=== PATIENT | male | born 1965 | race Caucasian/White ===

== ENCOUNTER 2017-02-13 12:10 | Observation (INO) | payer BC ==
[2017-02-13] MEDS ORDERED: NS 0.9% 1000 ML* 1,000 ML IV ONE (12:48)
[2017-02-13 12:53] LABS: Hematocrit 44 % (42-52); Hemoglobin 14.9 g/dl (14.0-18.0); Mean Corpuscular HGB Conc 34 g/dl (31-36); Mean Corpuscular Hemoglobin 28 pg (27-31); Mean Corpuscular Volume 83 fL (80-94); Mean Platelet Volume 8 um3 (7.4-10.4); Red Blood Count 5.26 10^6/ul (4.0-5.4); Red Cell Distribution Width 14 % (10.5-15); White Blood Count 6.6 10^3/ul (3.5-10.8)
[2017-02-13 13:15] LABS: Albumin 4.1 g/dL (3.2-5.2); Calcium 9.4 mg/dL (8.6-10.3); EGFR African American 116.4 (>60); EGFR Non-African American 90.5 (>60); Globulin 2.5 g/dL (2-4); Magnesium 1.9 mg/dL (1.9-2.7); Potassium 4.2 mmol/L (3.5-5.0); Total Bilirubin 0.6 mg/dL (0.2-1.0); Total Protein 6.6 g/dL (6.4-8.9)
[2017-02-13] MEDS ORDERED: Ondansetron INJ* 2 MG/ML VIAL IV ONE (13:15)
--- NOTE | 2017-02-13 13:16 | RAD ---
HISTORY: Dizziness COMPARISONS: May 19, 2003 VIEWS: 1: frontal portable view of the chest at 12:45 PM FINDINGS: LINES AND TUBES: None. CARDIOMEDIASTINAL SILHOUETTE: The cardiomediastinal silhouette is normal for portable technique. PLEURA: The costophrenic angles are sharp. No pleural abnormalities are noted. LUNG PARENCHYMA: The lungs are clear. ABDOMEN: The upper abdomen is clear. There is no subphrenic gas. BONES AND SOFT TISSUES: No bone or soft tissue abnormalities are noted. IMPRESSION: NO ACTIVE CARDIOPULMONARY DISEASE.
[2017-02-13 13:42] LABS: TSH (Thyroid Stimulating Horm) 0.61 mcIU/mL (0.34-5.60)
--- NOTE | 2017-02-13 13:53 | ED ---
Joshua Hyman Thomas, scribed for Magda Mustafa MD on 02/13/17 at 1303 . Dizziness - HPI Summary HPI Summary: The pt is a 51 y/o M presenting to the ED c/o dizziness characterized as near- syncope that began today at 12:00. He was driving when he started to notice fuzzy eyesight and then pressure in his head. He felt faint and pulled over to the side of the road and took deep breaths. He then drove to the ED. He also complains of chronic arm pain that began a month ago. The pain is normally intermittent, but it has been constant today since 06:30. He describes this pain as a sleepy arm. Pt denies INIGUEZ, neck pain, CP, double vision, aphasia, and dysphagia. 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 He drinks occasionally and does not smoke. PMHx significant for borderline HTN and sleep apnea. NIH 0 - History Of Current Complaint Chief Complaint: EDDizziness Stated Complaint: NUMBNESS LEFT ARM,DIZZY SPELL Time Seen by Provider: 02/13/17 12:28 Hx Obtained From: Patient Onset/Duration: Still Present Timing: Minutes - onset today at 12:00 Character: Lightheaded, Weak Aggravating Factor(s): Nothing Alleviating Factor(s): Nothing Associated Signs And Symptoms: Positive: Other: - Arm pain; NEGATIVE: INIGUEZ, neck pain, double vision, aphasia, dysphagia. Negative: Chest Pain - Allergies/Home Medications Allergies/Adverse Reactions: Allergies Allergy/AdvReac Type Severity Reaction Status Date / Time Penicillins [PCN] Allergy Severe Difficulty Verified 03/20/15 10:29 Breathing PMH/Surg Hx/FS Hx/Imm Hx Previously Healthy: No Endocrine/Hematology History: Denies: Hx Diabetes, Hx Systemic Lupus Erythematosus Cardiovascular History: Reports: Hx Hypertension - borderline Denies: Hx Congestive Heart Failure, Hx Pacemaker/ICD Respiratory History: Reports: Hx Sleep Apnea GI History: Denies: Other GI Disorders - ACID REFLUX History: Denies: Hx Dialysis, Hx Renal Disease Musculoskeletal History: Denies: Hx Rheumatoid Arthritis Sensory History: Denies: Hx Hearing Aid Psychiatric History: Denies: Hx Panic Disorder - Cancer History Hx Chemotherapy: No - Surgical History Surgery Procedure, Year, and Place: RT WRIST- [place] CYST/LT WRIST - [place] Infectious Disease History: No Infectious Disease History: Denies: Traveled Outside the [place] in Last 30 Days - Family History Known Family History: Positive: Cardiac Disease, Hypertension - Social History Occupation: Employed Full-time - in law enforcement Lives: Alone Alcohol Use: Occasionally Alcohol Amount: Every other day Substance Use Type: Reports: None Smoking Status (MU): Never Smoked Tobacco Have You Smoked in the Last Year: No Review of Systems Negative: Fever Negative: Diplopia Negative: Other - NEG: dysphasia Negative: Chest Pain Neurological: Other - Dizziness characterized as near-syncope; NEG: aphasia Negative: Headache All Other Systems Reviewed And Are Negative: Yes Physical Exam Triage Information Reviewed: Yes Vital Signs On Initial Exam: Initial Vitals Temp Pulse Resp BP Pulse Ox 98.2 F 68 20 158/93 99 02/13/17 12:15 02/13/17 12:15 02/13/17 12:15 02/13/17 12:15 02/13/17 12:15 Vital Signs Reviewed: Yes Appearance: Positive: Well-Appearing, No Pain Distress Skin: Positive: Warm, Skin Color Reflects Adequate Perfusion, Dry Eyes: Positive: EOMI, CK Neck: Positive: Supple, Nontender Respiratory/Lung Sounds: Positive: Clear to Auscultation, Breath Sounds Present. Negative: Rales, Rhonchi, Wheezes Cardiovascular: Positive: RRR, Other - No gallop. Negative: Murmur, Rub Abdomen Description: Positive: Nontender, Soft. Negative: Distended, Guarding, Other: - No rebound Bowel Sounds: Positive: Present Musculoskeletal: Positive: Strength/ROM Intact. Negative: Edema Left, Edema Right Neurological: Positive: Sensory/Motor Intact, Alert, Oriented to Person Place, Time, CN Intact II-III Psychiatric: Positive: Affect/Mood Appropriate - Allison Coma Scale Coma Scale Total: 15 Diagnostics - Vital Signs Vital Signs Temp Pulse Resp BP Pulse Ox 02/13/17 12:15 98.2 F 68 20 158/93 99 - Laboratory Lab Results: Lab Results 02/13/17 Range/Units 12:45 WBC 6.6 (3.5-10.8) 10^3/ul RBC 5.26 (4.0-5.4) 10^6/ul Hgb 14.9 (14.0-18.0) g/dl Hct 44 (42-52) % MCV 83 (80-94) fL MCH 28 (27-31) pg MCHC 34 (31-36) g/dl RDW 14 (10.5-15) % Plt Count 266 (150-450) 10^3/ul MPV 8 (7.4-10.4) um3 Neut % (Auto) 61.1 (38-83) % Lymph % (Auto) 24.2 L (25-47) % [place] % (Auto) 8.4 (1-9) % Eos % (Auto) 5.3 (0-6) % Baso % (Auto) 1.0 (0-2) % Absolute Neuts (auto) 4.0 (1.5-7.7) 10^3/ul Absolute Lymphs (auto) 1.6 (1.0-4.8) 10^3/ul Absolute Monos (auto) 0.6 (0-0.8) 10^3/ul Absolute Eos (auto) 0.4 (0-0.6) 10^3/ul Absolute Basos (auto) 0.1 (0-0.2) 10^3/ul Absolute Nucleated RBC 0 10^3/ul Nucleated RBC % 0 Result Diagrams: 02/13/17 12:45 02/13/17 12:45 Lab Statement: Any lab studies that have been ordered have been reviewed, and results considered in the medical decision making process. - Radiology CXR Xray Interpretation: No Acute Changes - No active cardiopulmonary disease. ED physician has read this report and agrees. Radiology Interpretation Completed By: Radiologist - EKG 12:40 Cardiac Rate: NL - 71 BPM EKG Interpretation: Normal EKG. No PVCs. National Institutes Of Health - NIH Scale Level of Consciousness: Alert/Keenly Responsive Ask Patient the Month and His/Her Age: Both Correct Ask Pt to Open/Close Eyes and Tubing Oiler/Release Non-Paretic Hand: Both Correctly Best Gaze (Only Horizontal Eye Movement): Normal Visual Field Testing: No Visual Loss Facial Paresis-Pt to Smile & Close Eyes or Grimace Symmetry: Normal/Symmetrical Motor Function - Right Arm: No Drift-Holds 10 Seconds Motor Function - Left Arm: No Drift-Holds 10 Seconds Motor Function - Right Leg: No Drift-Holds 10 Seconds Motor Function - Left Leg: No Drift-Holds 10 Seconds Limb Ataxia-Must be out of Proportion to Weakness Present: Absent Sensory (Use Pinprick to Test Arms/Legs/Trunk/Face): Normal Best Language (Describe Picture, Name Items): No Aphasia Dysarthria (Read Several Words): Normal Extinction and Inattention: No Abnormality Total Score: 0 Dizzy Course/Dx - Course Course Of Treatment: 51 yo male with episodic left arm pain and near syncope this am pt presented to hopsitalist for obv - Diagnoses Provider Diagnoses: Near syncope - Provider Notifications Discussed Care Of Patient With: Kristel Jenkins Time Discussed With Above Provider: 13:10 Instructed by Provider To: Other - We discussed patient care Discharge - Discharge Plan Condition: Stable Disposition: ADMITTED TO [facility] documentation as recorded by the Joshua jeffers Thomas accurately reflects the service I personally performed and the decisions made by me, Magda Mustafa MD.
[2017-02-13] MEDS ORDERED: Acetaminophen TAB* 325 MG PO PRN (13:57)
[2017-02-13] MEDS ORDERED: Ondansetron INJ* 2 MG/ML VIAL IV PRN (13:57)
[2017-02-13] MEDS ORDERED: Perflutren Lipid Microsphere* 3 ML VIAL ONE (14:51)
--- NOTE | 2017-02-13 17:39 | HP ---
Amended report to enter co-signing doctor. HISTORY AND PHYSICAL: DATE OF ADMISSION: 02/13/17 PRIMARY CARE PHYSICIAN: Dr. Nielson. ATTENDING PHYSICIAN: Dr. Anibal Bourne* (dictation is provided by Shiv Greene NP). CHIEF COMPLAINT: Near syncope. HISTORY OF PRESENT ILLNESS: Today, Mr. Quinn was in his normal state of health , was driving, running errands; this morning after having a normal breakfast, felt his left arm was aching with tingling in his fingers. He said this is not unusual, it has been occurring for the past few months and then after about half an hour, he noticed that his vision was getting fuzzy and he felt dizzy. He did not lose consciousness. He felt hot and flushed, was negative for diaphoresis. He continued to drive and thought he would drive to his family physician, changed his mind at that point and drove to the emergency room to be evaluated. Again, he was near syncopal with no loss of consciousness. On arrival to the emergency room, his vital signs were stable. He was in a sinus rhythm. His O2 sats were 98, blood pressure was 142/80, he said that he has been borderline hypertension, respiratory rate 18. His EKG showed a normal sinus rhythm. While in the emergency room, he also had a chest x-ray. The chest x-ray showed no active cardiopulmonary disease. He has been free of symptoms since his arrival to the emergency room. Denies chest pain, shortness of breath, palpitations. He has been in his usual state of health up until today. He is on room air. PAST MEDICAL HISTORY: He does have a history of GERD, which he will take Prevacid p.r.n. if he feels he needs it. He also has a history of BPH that he sees Dr. Meng for, sleep apnea, wears a CPAP, and obesity. PAST SURGICAL HISTORY: He has had a right wrist ganglion removed and a left wrist arthroplasty, which was benign. MEDICATIONS: As outpatient he takes: 1. Flomax 0.4 mg by mouth once a day. 2. Prevacid p.r.n. ALLERGIES: He is allergic to PENICILLIN. FAMILY HISTORY: Significant for a father who is alive in his 70s, with a history of heart attack and hypertension. Mother is alive and well, with a history of hypertension. He has a brother who is alive and well and healthy. He has 2 grown children who are healthy. SOCIAL HISTORY: No smoking. He does drink 6 to 9 beers in a week. No drugs. He works as a law enforcement agent. He is and, as previously stated, has 2 children. REVIEW OF SYSTEMS: Currently he has no fever. He has not had any weight change. His vision is back to normal. No sore throat. No cough. No thyroid enlargement. Denies having chest pain during the event and previously. No history of shortness of breath. No orthopnea. No nausea or vomiting. No dysuria or any frequency. Review of 14 systems completed, all others are negative. No abdomen pain. No diarrhea or constipation. PHYSICAL EXAMINATION GENERAL: He is sitting on the stretcher, in no acute distress. LUNGS: Clear bilaterally on room air. HEART: S1, S2, in a normal sinus rhythm, regular. ABDOMEN: Large, round, soft, nontender. Positive bowel sounds. EXTREMITIES: No cyanosis. No edema. NEUROLOGIC: He is alert, oriented x3, cooperative, pleasant, interacts easily, moves all extremities well. SKIN: Intact. DIAGNOSTIC STUDIES: His lab readings, white count 6.6, H and H of 14.9 and 44. Chemistry is normal. Sodium 137, potassium 4.2, chloride 103, carbon dioxide 29, BUN 16, creatinine 0.89. His glucose was at 106, which I discussed with him. No history of diabetes or family diabetes. Lactic 0.9. TSH 0.61. Chest x-ray, which was completed in the ER, is read as no findings. ASSESSMENT: Mr. Quinn is a 51-year-old gentleman who was in his normal state of health, running errands today, driving by himself, presented to the ER after having a near syncopal episode. Since arrival, he has been symptom free. We be admitted as an OBV. We will get echo and serial troponins to rule out a cardiac event. PLAN: 1. Near syncope. We will observe on the telemetry unit. He will be on cardiac monitoring. We will obtain echo, serial troponins, and monitor. 2. BPH. We will continue his Flomax. 3. GERD. Continue Prevacid as needed. 4. DVT prophylaxis. He will have SCDs if he is in bed, and up ambulating ad- cliff. 5. Disposition: To the telemetry unit. 6. He is full code. His is his surrogate decision maker. Time Spent: 60 minutes spent on admission of patient with approximately 1/2 the time at the bedside, physical exam and discussing plan of care. Attending physician in agreement with plan of care. SHIV GREENE, DOUBLE BACKER [id number]/CPS #: [id number] PIER[place]
[2017-02-13 21:55] VITALS: BP 179/104
--- NOTE | 2017-02-14 07:30 | DCNOTE ---
Subjective Date of Service: 02/13/17 Interval History: Patient was in his normal state of health when he developed left arm numbness and bilateral arm tingling. States this did not dissipate and the developed blurred vision and warmth to his face. He was going to drive to his primary care physician and then decided to drive to the emergency room for evaluation. While in the Emergency Room his symptoms resolved. Was admitted as an OBV. ECHO and serial troponins were obtained. Patient carries a history of BPH and obesity. Family History: Unchanged from Admission Social History: Unchanged from Admission Past Medical History: Unchanged from Admission Objective Active Medications: Flomax 0.4mg daily Vital Signs 02/13/17 02/13/17 02/13/17 14:00 14:30 15:00 Temperature Pulse Rate 64 64 64 Respiratory 17 20 20 Rate Blood Pressure 136/85 145/83 139/71 (mmHg) O2 Sat by Pulse 95 96 97 Oximetry 02/13/17 02/13/17 15:15 20:43 Temperature 97.9 F 98.5 F Pulse Rate 67 72 Respiratory 18 18 Rate Blood Pressure 145/57 179/104 (mmHg) O2 Sat by Pulse 99 97 Oximetry Oxygen Devices in Use Now: None Appearance: Comfortable appearing obese male resting in bed Eyes: No Scleral Icterus, PERRLA Ears/Nose/Mouth/Throat: NL Teeth, Lips, Gums, Clear Oropharnyx, Mucous Membranes Moist Neck: NL Appearance and Movements; NL JVP, Trachea Midline, No Thyroid Enlargement, Masses Respiratory: Symmetrical Chest Expansion and Respiratory Effort, Clear to Auscultation Cardiovascular: NL Sounds; No Murmurs; No JVD, No Edema Abdominal: NL Sounds; No Tenderness; No Distention, No Hepatosplenomegaly Lymphatic: No Cervical Adenopathy Extremities: No Edema, No Clubbing, Cyanosis Skin: No Rash or Ulcers Neurological: Alert and Oriented x 3, NL Sensation, NL Muscle Strength and Tone Result Diagrams: 02/13/17 12:45 02/13/17 12:45 Additional Lab and Data: Lab Results 02/13/17 Range/Units 12:45 WBC 6.6 (3.5-10.8) 10^3/ul RBC 5.26 (4.0-5.4) 10^6/ul Hgb 14.9 (14.0-18.0) g/dl Hct 44 (42-52) % MCV 83 (80-94) fL MCH 28 (27-31) pg MCHC 34 (31-36) g/dl RDW 14 (10.5-15) % Plt Count 266 (150-450) 10^3/ul MPV 8 (7.4-10.4) um3 Neut % (Auto) 61.1 (38-83) % Lymph % (Auto) 24.2 L (25-47) % [place] % (Auto) 8.4 (1-9) % Eos % (Auto) 5.3 (0-6) % Baso % (Auto) 1.0 (0-2) % Absolute Neuts (auto) 4.0 (1.5-7.7) 10^3/ul Absolute Lymphs (auto) 1.6 (1.0-4.8) 10^3/ul Absolute Monos (auto) 0.6 (0-0.8) 10^3/ul Absolute Eos (auto) 0.4 (0-0.6) 10^3/ul Absolute Basos (auto) 0.1 (0-0.2) 10^3/ul Absolute Nucleated RBC 0 10^3/ul Nucleated RBC % 0 Diagnostic Imaging: Please refer to Echocardiogram report EKG Data: Normal sinus rhythm with no acute findings Assess/Plan/Problems-Billing Assessment: Pt admitted after having a near syncopal episode while driving. During his admission patient has been free of symptoms. Stated he requests discharge as he has plans for the weekend and feels back to his normal state of health. Serial Troponins negative. See echo report and instructed to follow up with primary care physician. Patient discharged and instructed to follow up with his primary care physician. Plan: Near Syncopal Episode: Return to the emergency room if symptoms return. Do Not drive if symptoms are present. Follow up with Primary Care physician. BPH: Continue Flomax Code Status: Full Code Time Spent: 60 minutes spent on patients discharge with more then half my time face to face agreeing on plan of care and discharge instructions. Discussed plan of care with attending and he is in agreement. Status and Disposition: Discharge to home Follow up with Primary care in 1-2 weeks Return to the emergency room for chest pain or return of symptoms Do NOT drive if symptoms return. Call 911
[2017-02-14] MEDS ORDERED: Tamsulosin CAP* 0.4 MG PO SCH (09:00)
--- NOTE | 2017-02-15 11:02 | ECHO ---
Patient: MICHELLE VARGAS [facility] Rec#: [id number] : 1965 Date: 02/13/2017 Age: 51y Height: 182.88 cm / 72.0 in Weight: 127.01 kg / 279.9 lbs Sex: M BSA: 2.46 Room#: -17 Admit Date#: 02/13/2017 Type: Inpatient Referring: Kallie Greene Reading: Camila Jeong MD Sander Operator: Tory Cuba EMILY CC: Anil Milligan MD Transthoracic Echocardiogram Indication: Dizziness/Tingling left arm BP: 158/93 HR: 63 Rhythm: NSR Findings History: EVGENY,nonsmoker,tingling left arem ,dizziness. Technical Comments: The study is technically limited due to patient body habitus. 4 ml Definity used to enhance endocardial border. Left Ventricle: The left ventricular chamber size is normal. Septal wall hypertrophy is observed. Global left ventricular wall motion and contractility are within normal limits. There is normal left ventricular systolic function. The estimated ejection fraction is 55-60%. Normal left ventricular diastolic filling is observed. Left Atrium: The left atrium is mildly dilated. Right Ventricle: The right ventricle is slightly dilated. The right ventricular global systolic function is normal. Right Atrium: The right atrium is mildly dilated. Aortic Valve: The aortic valve is trileaflet. There is no evidence of aortic valve thickening. There is no evidence of aortic regurgitation. There is no evidence of aortic stenosis. Mitral Valve: The mitral valve leaflets are mildly thickened. There is a trace of mitral regurgitation. There is no evidence of mitral stenosis. Tricuspid Valve: The tricuspid valve leaflets are normal. There is trace tricuspid regurgitation. Unable to estimate the right ventricular systolic pressure. There is no tricuspid stenosis. Pulmonic Valve: The pulmonic valve appears normal. There is no evidence of pulmonic regurgitation. There is no pulmonic stenosis. Pericardium: A pericardial fat pad is visualized. Aorta: There is no dilatation of the ascending aorta. There is no dilatation of the aortic arch. There is no dilation of the aortic root. Pulmonary Artery: The main pulmonary artery appears normal. Venous: The venous system is not well visualized. Contrast: Definity was used to optimize study. 4 ml utilized. Intravenous contrast was used to enhance endocardial border definition. Conclusions The left ventricular chamber size is normal. Global left ventricular wall motion and contractility are within normal limits. The estimated ejection fraction is 55-60%. Normal left ventricular diastolic filling is observed. The right ventricular global systolic function is normal. Mild biatrial enlargement. All valves show good function. There is a trace of mitral regurgitation. There is trace tricuspid regurgitation. Technically difficult study, adequate for evaluation. No prior study to compare. Measurements Name Value Normal Range RVIDd (AP) 2D 3.6 cm (0.9 - 2.6) RVDdMajor (2D) 4.6 cm (2.2 - 4.4) RAd ISD 4CH 5 cm (3.4 - 4.9) RA (A4C)W 4.1 cm (2.9 - 4.6) IVSd (2D) 1.3 cm (0.6 - 1) LVPWd (2D) 1 cm (0.6 - 1) LVIDd (2D) 4.1 cm (3.6 - 5.4) LVIDs (2D) 3.4 cm - LV FS (2D) 18 % (25 - 45) Aortic Annulus 2.2 cm (1.4 - 2.6) Ao root diameter (2D) 3.5 cm (2.1 - 3.5) Ascending Ao 3.3 cm (2.1 - 3.4) Aortic arch 3 cm (1.8 - 3.4) Descending Ao 0.7 cm - LA dimension (AP) 2D 4.2 cm (2.3 - 3.8) LAd ISD 4CH 5.2 cm (2.9 - 5.3) LA ISD 4CH W 3.6 cm (2.5 - 4.5) Name Value Normal Range LA ESV SP 4CH (A/L) 51 ml - LA ESV SP 2CH (A/L) 57 ml - LA ESV BP (A/L) 56 ml - LA ESV BP (A/L) index 22.62 ml/m2 - LA ESV SP 4CH (MOD) 48 ml - LA ESV SP 2CH (MOD) 54 ml - Name Value Normal Range MV E-wave Vmax 1 m/sec - MV deceleration time 168 msec - MV A-wave Vmax 0.7 m/sec - MV E:A ratio 1.38 ratio - LV septal e' Vmax 0.1 m/sec - LV lateral e' Vmax 0.12 m/sec - LV E:e' septal ratio 10 ratio - LV E:e' lateral ratio 8.33 ratio - Name Value Normal Range AV Vmax 1.4 m/sec - AV VTI 30.4 cm - AV peak gradient 7.3 mmHg - AV mean gradient 3.09 mmHg - LVOT Vmax 1.1 m/sec - LVOT VTI 24.9 cm - LVOT peak gradient 4.79 mmHg - LVOT mean gradient 2.09 mmHg - Name Value Normal Range PV Vmax 0.9 m/sec - PV peak gradient 3.25 mmHg -
--- NOTE | 2017-02-17 08:16 | DS ---
DISCHARGE SUMMARY: DATE OF ADMISSION: 02/13/17 DATE OF DISCHARGE: 02/13/17 He is an observation patient. PROVIDER: Dr. Anibal Bourne* (dictated by Shiv Beauchamp NP). INTERVAL HISTORY: The patient was in his normal state of health when he developed left arm numbness and bilateral arm tingling. He states that this did not dissipate and then developed blurred vision and warmth to his face. He was going to drive to his primary care physician and then he decided to drive to the emergency room for evaluation. While in the emergency room, his symptoms resolved. He was admitted as an observation patient. Echo and serial troponins were obtained. The patient also carries a history of BPH and morbid obesity. PAST MEDICAL HISTORY: Unchanged from admission. DISCHARGE MEDICATIONS: Medication he will be discharged to home on is Flomax 0.4 mg daily. FAMILY HISTORY: Unchanged from admission. SOCIAL HISTORY: Unchanged from admission. PHYSICAL EXAMINATION: Most recent set of vital signs: Temperature 98.5, heart rate 72, respiratory rate 18, blood pressure 145/57, O2 sat 97%, he is on room air. He appears comfortable-appearing obese male resting in bed. Ready for discharge. Eyes: No scleral icterus. PERRLA. Normal teeth, gums. Mucous membranes moist. Neck: Normal in appearance and movements. No JVP. Trachea midline. No thyroid enlargement. Respiratory: Symmetrical chest expansion. Clear to auscultation. Cardiovascular: Normal sounds. No murmurs. No JVD. No edema. Abdomen: Normal sounds. No tenderness. No distention. Lymphatic: No cervical adenopathy. Extremities: No edema, no clubbing, no cyanosis. Skin: No rashes or ulcers. Neurological: Alert and oriented x3. Normal sensation. Normal muscle strength and tone. DIAGNOSTIC STUDIES/LAB DATA: While here 02/13/17, Serial Troponins completed for a total of 3 which were all 0. His H and H stable at 14.9 and 44. His chemistry was unremarkable. Please refer to the echocardiogram report for detailed findings. EKG data normal sinus rhythm and no acute findings. ASSESSMENT: The patient admitted after having a near syncopal episode while driving. During his admission, the patient has been free of symptoms, stated he requests discharge, says he has plans for the weekend and feels back to his normal state of health. Serial troponins negative. See echo report for detailed information and instructed to follow up with primary care physician. The patient discharged and instructed to follow up with his primary care physician within 1-2 weeks. PLAN: 1. Near syncopal episode. Return to the emergency room if symptoms return, do not drive if symptoms are present. Follow up with primary care physician within 1 to 2 weeks. 2. BPH. Continue Flomax. TIME SPENT: Sixty minutes was spent on the patient's discharge, more than half of my time [id number], agreeing on plan of care and discharge instructions. Discussed the plan of care with attending, Dr. Anibal Bourne; he is in agreement. Discharged to home, follow up with primary care in 1 to 2 weeks. Return to the emergency room for chest pain or return of symptoms. Do not drive if symptoms return and call 911. SHIV BEAUCHAMP, CHRISSY [id number]/[facility] #: [id number] [place]
== END 2017-02-13 21:55 | disposition home or self-care (01) ==
LOC: ED 12:10 → MEDTELE 13:48
PROVIDERS: ADMIT Internal Medicine; ATTEND Internal Medicine
DX: R55 Syncope and collapse (principal); R20.0 Anesthesia of skin; N40.0 Benign prostatic hyperplasia without lower urinary tract symptoms; K21.9 Gastro-esophageal reflux disease without esophagitis; I51.7 Cardiomegaly; Z79.899 Other long term (current) drug therapy
CPT/HCPCS: 36415; 71010; 80053; 83605; 83735; 84443; 84484; 85025; 93005; 93306; 96361; 96374; 99283; C8929; G0378; J2405

== ENCOUNTER 2017-11-01 14:37 | Emergency (ER) | payer BC ==
[2017-11-01 15:01] VITALS: BP 148/89
--- NOTE | 2017-11-01 17:06 | ED ---
Cornelia Hyman Jade, [facility] on 11/01/17 at 1701 . Back Pain - HPI Summary HPI Summary: In Room Note: Pt is a 52 y/o male who presents to the ED c/o back pain. He states 2 nights ago he was bending over and felt a pop in his lower back, and couldnt stand up. The pain has not resolved. Aggravating factors are twisting his back, laying on his left side, or laying on his back. Pt states hes fine laying on his right side. Pt is able to stand up when he pulls himself up. He reports numbness and tingling at the top of his left leg, and throbbing at the top of his right leg when sitting. He denies any weakness in his feet or ankles , numbness down his leg, or incontinence. Nurses Note: "Popped" his back on Thursday evening, lower back pain worse while active. Pain 8/10 in intensity. Note: Vital signs stable, BP 148/89. Visit history significant for lightheadedness and near-syncope. - History of Current Complaint Chief Complaint: UCBackPain Stated Complaint: BACK PAIN Time Seen by Provider: 11/01/17 16:12 Hx Obtained From: Patient Onset/Duration: Sudden Onset, Still Present Onset/Duration: Started Days Ago - 2 nights ago Timing: Constant Back Pain Location: Is Discrete @ - Lower bacl Severity Currently: Severe Pain Intensity: 8 Pain Scale Used: 0-10 Numeric Aggravating Symptom(s): Movement - Twisting his back Alleviating Symptom(s): Position - Laying on right side - Allergies/Home Medications Allergies/Adverse Reactions: Allergies Allergy/AdvReac Type Severity Reaction Status Date / Time Penicillins Allergy Difficulty Verified 11/01/17 15:02 Breathing/Wheezing PMH/Surg Hx/FS Hx/Imm Hx Endocrine/Hematology History: Denies: Hx Diabetes, Hx Systemic Lupus Erythematosus Cardiovascular History: Reports: Hx Hypertension - borderline Denies: Hx Congestive Heart Failure, Hx Pacemaker/ICD Respiratory History: Reports: Hx Sleep Apnea GI History: Reports: Other GI Disorders - ACID REFLUX History: Denies: Hx Dialysis, Hx Renal Disease Musculoskeletal History: Denies: Hx Rheumatoid Arthritis Sensory History: Reports: Hx Contacts or Glasses Denies: Hx Hearing Aid Opthamlomology History: Reports: Hx Contacts or Glasses Psychiatric History: Denies: Hx Panic Disorder - Cancer History Hx Chemotherapy: No - Surgical History Surgery Procedure, Year, and Place: RT WRIST- [facility]/LT WRIST - [place] Infectious Disease History: No Infectious Disease History: Reports: Hx Shingles - Per patient, 2 years ago Denies: Traveled Outside the [place] in Last 30 Days - Family History Known Family History: Positive: Cardiac Disease, Hypertension Negative: Diabetes - Social History 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 Negative: Weakness All Other Systems Reviewed And Are Negative: Yes Physical Exam - Summary Physical Exam Summary: Appearance: The patient is moving slowly because of lower back discomfort. Overall restricted by pain. Eyes: Conjunctiva are clear. ENT: The hearing is grossly normal, the pharynx is normal, and the TMs are normal. There is no muffled or hoarse voice. Neck: The neck is supple and there is no lymphadenopathy. Respiratory: The chest is nontender. The lungs are clear, there are normal breath sounds, and there is no respiratory distress. Cardiovascular: Heart is regular rate and rhythm. There is no murmur. Abdomen: The abdomen is soft and nontender. There is no organomegaly. Bowel sounds: present Musculoskeletal: Strength is intact. The patient moves all extremities. No point tenderness on spine. Distal circulation, motor, and sensory intact. Neurological: The patient is alert. Psychological: The patient displays age appropriate behavior Skin: Negative for rashes. Triage Information Reviewed: Yes Vital Signs On Initial Exam: Initial Vitals Temp Pulse Resp BP Pulse Ox 98.5 F 66 20 148/89 97 11/01/17 14:56 11/01/17 14:56 11/01/17 14:56 11/01/17 14:56 11/01/17 14:56 Vital Signs Reviewed: Yes Diagnostics - Vital Signs Vital Signs Temp Pulse Resp BP Pulse Ox 11/01/17 14:56 98.5 F 66 20 148/89 97 - Laboratory Lab Statement: Any lab studies that have been ordered have been reviewed, and results considered in the medical decision making process. Back Pain Course/Dx - Course Course Of Treatment: Medications have been included in the original chart and reviewed. Hypertensive BP reading (>=140/90); patient referred to PCP within 1 day - 4 weeks for follow up. This patient is a 52-year-old with sharp lower back pain for approximately 3 days after lifting. He does not have burning pain going down his legs, or problems with his bowel or bladder. Diagnosis is muscle strain of the low back. I have referred him for physical therapy. - Diagnoses Differential Diagnosis/HQI/PQRI: Positive: Other - Pinched nerve vs. muscle strain Provider Diagnoses: Low back strain Discharge - Sign-Out/Discharge Documenting (check all that apply): Discharge/Admit/Transfer - Discharge Plan Condition: Stable Disposition: HOME Patient Education Materials: Low Back Strain (ED), Lower Back Exercises (ED) Forms: *Work Release Referrals: Anil Milligan MD [Primary Care Provider] - Additional Instructions: As we discussed, it does not appear as if you pinched nerve. I have given you a prescription for physical therapy. For pain use ibuprofen 400-600 mg and Tylenol 1000 mg up to 3 times a day. Warm moist heat in the morning and ice massage to the area after work. I have given him a work note. Return to work on November 04. Check at any time for increased pain or disability. He should slowly be getting better over the next 1-3 weeks. - Billing Disposition and Condition Condition: STABLE Disposition: Home The documentation as recorded by the Cornelia jeffers Jade accurately reflects the service I personally performed and the decisions made by me, Yosi Richard MD.
== END 2017-11-01 16:32 | disposition home or self-care (01) ==
LOC: UCEAST 14:37
DX: S39.012A Strain of muscle, fascia and tendon of lower back, initial encounter (principal); X50.1XXA Overexertion from prolonged static or awkward postures, initial encounter; Y93.9 Activity, unspecified; Y92.9 Unspecified place or not applicable; Z88.0 Allergy status to penicillin; R03.0 Elevated blood-pressure reading, without diagnosis of hypertension; G47.30 Sleep apnea, unspecified; K21.9 Gastro-esophageal reflux disease without esophagitis; Z82.49 Family history of ischemic heart disease and other diseases of the circulatory system
CPT/HCPCS: 99211; G0463

== ENCOUNTER 2024-06-28 11:30 | Observation (INO) ==
[~2024-06-28 11:30] MED LIST: Lidocaine 2% PF 5 ML VIAL ONE; Metoclopramide 5 MG/ML VIAL (10 mg) IV PRN; Midazolam 5 mg/5 ml VIAL 1 mg/ml 5 ml VIAL (5 mg) ONE; NS 0.45% 1000 ml BAG 1,000 ML IV SCH; Naloxone 0.4 mg VIAL 0.4 mg/ml 1 ml VIAL IV PRN; Ondansetron 4 mg VIAL 2 MG/ML 2 ml VIAL IV PRN; Propofol 10 MG/ML 20 ML BTL ONE; ROPIVACAINE 5 MG/ML 30 ML BTL (0.5%) ONE; Rocuronium 50 mg VIAL 10 mg/ml 5 ml VIAL (50 mg) ONE; fentaNYL 250 mcg/5 ml 50 MCG/ML 5 ml VIAL (250 MCG) ONE
[2024-06-28 12:08] LABS: Rapid COVID-19 Molecular Undetected (Undetected)
[2024-06-28] MEDS ORDERED: Scopolamine 1 mg/72hr PATCH ONE (12:12)
[2024-06-28] MEDS ORDERED: Clindamycin 900 MG/50 **NS BAG 900 MG/50 ML BAG ONE (12:14)
[2024-06-28] MEDS ORDERED: Tranexamic Acid 1 GM/100ML BAG 2,000 MG/200 ML BAG IV ONE (12:14)
[2024-06-28] MEDS: Scopolamine 1 mg/72hr PATCH TRANSDERM ONE (12:16)
[2024-06-28] MEDS: Lactated Ringers 1000 ml BAG 1,000 ML IV SCH ×2 (12:17→18:35)
[2024-06-28] MEDS ORDERED: Rocuronium 50 mg VIAL 10 mg/ml 5 ml VIAL (50 mg) ONE (15:30)
[2024-06-28] MEDS ORDERED: Calcium Carb (TUMS) 500 mg CHEW TAB PO PRN (15:40)
[2024-06-28] MEDS ORDERED: Magnesium Hydroxide LIQ 30 ML UDC PO PRN (15:40)
[2024-06-28] MEDS ORDERED: Ondansetron ODT 4 mg TAB 4 MG TAB PO PRN (15:40)
[2024-06-28] MEDS ORDERED: Lactulose 30 ml UDC PO PRN (15:40)
[2024-06-28] MEDS ORDERED: Ondansetron 4 mg VIAL 2 MG/ML 2 ml VIAL ONE (15:43)
[2024-06-28] MEDS ORDERED: Dexamethasone IV 4 MG/ML VIAL 1 ml VIAL ONE (15:43)
[2024-06-28] MEDS ORDERED: fentaNYL 100 mcg/2 ml 50 MCG/ML VIAL ONE ×3 (16:26→17:46)
[2024-06-28] MEDS: fentaNYL 100 mcg/2 ml 50 MCG/ML VIAL IV PRN (17:18)
[2024-06-28] MEDS: Acetaminophen IV 1 GM/100ML 1,000 MG/100 ML BAG IV ONE (18:34)
[2024-06-28] MEDS: Buffered Lidocaine 1% SYRIN 1 ml INTRADERM ONE (18:34)
[2024-06-28] MEDS: Clindamycin 900 MG/D5W BAG 900 MG/50 ML BAG IVPB SCH ×2 (18:34→22:22)
[2024-06-28] MEDS: Magnesium Hydroxide LIQ 30 ML UDC PO SCH (19:44)
[2024-06-29] MEDS: Ondansetron 4 mg VIAL 2 MG/ML 2 ml VIAL IV PRN (01:41)
[2024-06-29 06:42] LABS: Hematocrit 36.4 % (38-53); Hemoglobin 12.8 g/dL (13.2-16.3); Mean Platelet Volume 7.7 fL (7.5-11.2); Platelet Count 258 10^3/uL (150-450)
[2024-06-29] MEDS: Vitamin THERAPEUTIC TAB PO SCH (08:05)
[2024-06-29 08:20] LABS: Calcium 8.6 mg/dL (8.6-10.3); Creatinine, Serum 0.76 mg/dL (0.67-1.17); Potassium 4.4 mmol/L (3.5-5.0); eGFR CKD-EPI 104.8 (>60)
[2024-06-29 11:21] VITALS: BP 118/67
== END 2024-06-29 15:50 | disposition home or self-care (01) ==
LOC: OR 11:30 → SSU 11:30
PROVIDERS: ADMIT Orthopaedic Surgery Adult Reconstructive Orthopaedic Surgery; ATTEND Orthopaedic Surgery Adult Reconstructive Orthopaedic Surgery